=== PATIENT | male | born 1980 ===

== ENCOUNTER 2021-11-29 13:00 | Emergency (ER) | payer MEDICAID, OTHER ==
[2021-11-29] MEDS: Sodium Chloride 0.9% 10 ML Syringe FLUSH PRN (14:26)
[2021-11-29] MEDS: Sodium Chloride 0.9% 1,000 ML IV ONE (14:26)
[2021-11-29 14:49] LABS: ANION GAP 12.7 mEq/L (7-13); CHLORIDE,CL 105 mmol/L (98-107); SODIUM,NA 139 mmol/L (136-145)
[2021-11-29 14:50] LABS: ESTIMATED GFR > 60
== END 2021-11-29 16:07 | disposition home or self-care (01) ==
LOC: DL.ED 13:00
DX: E86.0 Dehydration (principal); F17.210 Nicotine dependence, cigarettes, uncomplicated
CPT/HCPCS: 36415; 80053; 80307; 83690; 83735; 84443; 84484; 85025; 93005; 96360; 99284; J3490; J7030; 93010; 99282